=== PATIENT | female | born 1985 | race Caucasian/White ===

== ENCOUNTER → 2018-05-24 | Outpatient (CLI) | payer BC ==
[~2018-05-24] MED LIST: ACE3 PO; CALC1TAB32 PO; CALC600T63 PO; CHOL400T55 PO; ENOX80DI8 SQ; FAMO10TA7 PO; IBU800 PO; PREN-136 PO; SERT-181 PO; WARF-1 PO; WARF1TAB15 PO; WARF5TAB23 PO; WARF6TAB13 PO; WARF7.5T13 PO
[2018-05-24 17:11] LABS: PLATELET COUNT, AUTOMATED 214 K/uL (150-450)
[2018-05-24 17:22] LABS: LDL CHOLESTEROL 240 mg/dl
== END ==
LOC: LAB 16:48
PROVIDERS: ATTEND Emergency Medicine
DX: E78.00 Pure hypercholesterolemia, unspecified (principal); R94.5 Abnormal results of liver function studies
CPT/HCPCS: 36415; 82040; 82247; 82310; 82374; 82435; 82465; 82565; 82947; 83718; 84075; 84132; 84155; 84295; 84450; 84460; 84478; 84520; 85025; 86140

== ENCOUNTER 2018-06-07 11:23 | Outpatient (RCR) | payer BC ==
[2018-06-07 11:29] VITALS: BP 125/75
[2018-06-07] MEDS ORDERED: MULT-1335 PO (11:31)
--- NOTE | 2018-06-07 18:48 | ONCOLOGY FOLLOW UP NOTE ---
EVENT DATE: June 07, 2018 DIAGNOSES 1. -associated thrombotic stroke with left hemiparesis and negative hypercoagulable state except for mild reduction of protein S activity at 54%, which could be related to the current . 2. Patent foramen ovale. CHIEF COMPLAINT Patient is here today for followup of her thrombolic stroke during . HEMATOLOGY HISTORY The patient is a 33-year-old female who presented to the emergency department at [facility] in [place], [place], brought by the EMS, with left facial droop and left extremity drift. The patient at that time was three weeks , but currently she is at her twelfth week of . She had a significant deficit of her left face and left upper extremity. She had a CT of the head done on April 16, 2016 which was unremarkable, so an MRI of the brain without contrast was done which showed abnormal signal intensity in the right internal capsule and the medial temporal lobe. There was also flare in the left internal capsule of questionable significance. It was felt that the patient had an infarct. The patient after that had been transferred to the [facility] in [place] and, as per patient, she had an MRI of the heart which showed PFO. The patient was started on blood thinner with Lovenox and was maintained on 90 mg b.i.d. She is here today to discuss further management. She has positive family history of blood clotting in her father, paternal aunt, paternal grandmother, all having blood clotting, and they were tested for hypercoagulable state and testing came back negative. The patient was tested also for hypercoagulable state and her testing came back negative except for mild reduction of protein S activity at 54%, which could be related to her current . Patient has delivered recently, without complication. HISTORY OF PRESENT ILLNESS Patient is here today for followup of her thrombolic stroke during with left hemiparesis. She is doing fine currently. She is complaining of pain in her right knee, but other than that she is really asymptomatic. CURRENT MEDICATIONS 1. Coumadin 7.5 mg for six days and 6 mg for one day. 2. vitamins. ALLERGIES No known drug allergies. PAST MEDICAL HISTORY Insignificant. PAST SURGICAL HISTORY 1. Tonsillectomy in 2002. 2. Ankle surgery due to ankle injury in 1993. FAMILY HISTORY She has two cousin with leukemia at young age, at nine and the other one a teenager. Her father, paternal aunt, paternal grandmother all have blood clotting, and they were tested for hypercoagulable state, and their testing came back negative. SOCIAL HISTORY The patient is . She has a son and daughter. She works as an environmental engineer. Denies any abuse of tobacco, alcohol or drugs. REVIEW OF SYSTEMS CONSTITUTIONAL: No appetite or weight change. No fever, chills or sweating. No recent infection. HEENT: Ears: No tinnitus or hearing problem. Nose: She has nasal discharge. She has occasional bleeding from her nose on blowing the nose. Throat: No sore throat or mouth ulcers. Eyes: No diplopia or visual changes. RESPIRATORY: No shortness of breath. No cough, expectoration or hemoptysis. CARDIOVASCULAR: No chest pain, orthopnea, or paroxysmal nocturnal dyspnea (PND) . No edema. No palpitations. GASTROINTESTINAL: No nausea or vomiting. No diarrhea or constipation. No change in bowel movements. No heartburn or swallowing difficulties. No abdominal pain. No jaundice. No hematemesis, melena or rectal bleeding. GENITOURINARY: No hematuria or dysuria. MUSCULOSKELETAL: The patient has pain in her right knee. NEUROLOGICAL: Her weakness in her legs is getting better. HEMATOLOGIC/LYMPHATIC: No bleeding or easy bruising. No weakness or fatigue. No enlarged lymph nodes. SKIN: No skin rash or lumps. PSYCHIATRIC: No anxiety or depression. PHYSICAL EXAMINATION GENERAL: Looks stable. Well-developed, well-nourished, and in no acute distress. VITAL SIGNS: Blood pressure 125/75, pulse 84 per minute, respirations 16 per minute, temperature 97.7, pulse ox 96% on room air. HEENT: Head: Atraumatic. No sinus tenderness to palpation. Eyes: No icterus or conjunctivitis. Mouth and throat: No oral thrush or mucositis. NECK: Supple. No cervical or supraclavicular lymphadenopathy. LUNGS: Clear to auscultation and percussion bilaterally. HEART: Regular rate and rhythm. No gallops, murmurs, clicks or rubs. ABDOMEN: Soft and lax. No tenderness. No hepatosplenomegaly. No masses. EXTREMITIES: No cyanosis, clubbing or edema. LYMPHATICS: No peripheral lymphadenopathy. NEUROLOGICAL: There is left hemiparesis with facial droop, which is getting better, as per patient. PSYCHIATRIC: Mood and affect appear normal. SKIN: No skin rash, bruise or purpuric eruption. DIAGNOSTIC DATA CBC showed white count 8.4, hemoglobin 14.5, hematocrit 34.5 and platelets 214, 000. Chem panel totally normal except blood sugar 118, AST 43, ALT 89. Other parameters are normal. ASSESSMENT 1. -associated thrombolic stroke with left hemiparesis with negative hypercoagulable state except for mild reduction in protein S activity at 54%, which could be related to her and thrombosis. The patient had a strong family history of blood clotting on the paternal side with her father, paternal aunt, paternal grandmother all having blood clotting disorder, and they tested negative for hypercoagulable state. Given that history and knowing that the thrombophilia workup is only positive in 50% of patients with blood clotting, the patient is a candidate for lifelong anticoagulation. She is currently on Coumadin 7.5 mg daily for six days and 6 mg for one day. She started Coumadin therapy July 25, 2017. I am planning to see the patient again n a year, and I advised the patient if she will develop any blood clot in the future, to contact our office to see her earlier. 2. Patent foramen ovale diagnosed in 2016. Patient is going to see her bulb filler for treatment. PLAN 1. Continue Coumadin. 2. Patient to return in one year. 3. Patient is to contact us for any new concern or complaints. DANIEL
== END 2018-06-15 09:11 | disposition home or self-care (01) ==
LOC: ONC 11:23
PROVIDERS: ATTEND Internal Medicine Hematology
DX: O99.411 Diseases of the circulatory system complicating pregnancy, first trimester (principal); I63.00 Cerebral infarction due to thrombosis of unspecified precerebral artery; G81.94 Hemiplegia, unspecified affecting left nondominant side; R29.810 Facial weakness; Q21.1 Atrial septal defect; Z79.01 Long term (current) use of anticoagulants; Z3A.12 12 weeks gestation of pregnancy
CPT/HCPCS: 99212

== ENCOUNTER → 2019-01-01 | Outpatient (CLI) | payer MEDICARE ==
[~2019-01-01] MED LIST changes: +CHOL10005 PO; +MULT-1335 PO; +ROSU40TA18 PO
== END ==
LOC: LAB 09:03
PROVIDERS: ATTEND Emergency Medicine
DX: E78.00 Pure hypercholesterolemia, unspecified (principal); R94.5 Abnormal results of liver function studies
CPT/HCPCS: 36415; 82040; 82247; 82248; 82465; 83718; 84075; 84155; 84450; 84460; 84478